=== PATIENT | female | born 1945 | race Caucasian/White ===

== ENCOUNTER → 2016-07-22 | Outpatient (CLI) | payer OTHER ==
--- NOTE | ~2016-07-22 | MY11 ---
[facility] A Service of [facility] RADIOLOGY TEXT RESULTS PATIENT: RONALD RAMIREZ LOCATION: [facility] : 49 UNIT #: [id number] AGE: [address]: Meggan Whitfield MD SEX: F ORDER DR: [id number] [facility] [address] [place], [place] [address] [id number] O MR#: [id number] Acc #: [id number] NAME: RONALD RAMIREZ : 1945 SEX: F STUDY DATE/TIME: 07/22/2016 11:43 UNIT: [facility] ROOM: STUDY DESCRIPTION: MY Mammogram Screening Dig Boris Attending Physician: Meggan Whitfield M.D. Referring Physician: Meggan Whitfield M.D. Ordering Physician: Meggan Whitfield M.D. Primary Care Physician: Meggan Whitfield M.D. MEDICAL IMAGING REPORT This report is preliminary unless electronic signature is present EXAM Screening mammogram 07/22/2016 INDICATION 70-year-old with no personal history but a positive family history of breast cancer. No current complaints. FINDINGS Routine digital screening views of both breasts were obtained. Study is reviewed with an FDA-approved CAD device. Comparison is made with 04/04/2015, 06/10/2006. Breast parenchyma shows scattered fibroglandular densities. No new masses or suspicious microcalcifications are seen. Scattered benign calcifications in both breasts are stable. IMPRESSION Benign mammogram. Routine screening in 1 year is recommended. Patient's over the age of 40 are entered into a reminder system with target due date for the next mammogram. BIRADS: 2 Benign findings Dictated by... Juan J Quevedo Jr., M.D. THIS IS AN ELECTRONICALLY VERIFIED REPORT Juan J Quevedo Jr., M.D. at 07/22/2016 2:50 PM KALEE/edelmira TD: 07/22/2016 14:22 [facility] A Service of [facility] RADIOLOGY TEXT RESULTS PATIENT: RONALD RAMIREZ LOCATION: [facility] : 49 UNIT #: [id number] AGE: [address]: Meggan Whitfield MD SEX: F ORDER DR: JOB #: [id number] MEDICAL IMAGING REPORT Page 1 of 1 COPY
== END | disposition home or self-care (01) ==
LOC: CWCC 11:17
DX: Z12.31 Encounter for screening mammogram for malignant neoplasm of breast (principal); Z80.3 Family history of malignant neoplasm of breast
CPT/HCPCS: G0202